=== PATIENT | female | born 1965 | race Caucasian/White ===

== ENCOUNTER → 2018-05-22 14:35 | Outpatient (CLI) | payer BC, SELFPAY ==
--- NOTE | 2018-05-22 14:41 | XR_ITS ---
XR calcaneus RT min 2V CLINICAL INDICATION: ITS.REASON: PAIN OF RIGHT HEEL ORDERING PHYSICIAN: Alex Santos MD PATIENT AGE: 53 years Comparison: None FINDINGS: The calcaneus has an unremarkable appearance. No fracture or dislocation. No lytic or significant degenerative change. There is a suspected old fracture of the distal aspect of the fifth metatarsal. IMPRESSION: Negative calcaneus
== END ==
PROVIDERS: PCP Family Medicine; Visit Provider Family Medicine
DX: M79.671 Pain in right foot (principal)
CPT/HCPCS: 73650